=== PATIENT | female | born 1975 | race Caucasian/White ===

== ENCOUNTER 2017-03-01 11:36 | Emergency (ER) | payer OTHER ==
[~2017-03-01] VITALS: Ht 160 cm; Wt 95.5 kg
[~2017-03-01 11:36] MED LIST: PREN1TAB49
[2017-03-01 11:41] VITALS: Ht 160 cm; Wt 95.5 kg
--- NOTE | 2017-03-01 12:20 | ERD ---
ER Documentation Chief Complaint Date/Time DATE: 03/01/17 TIME: 12:19 Chief Complaint VAG BLEEDING SINCE YESTERDAY, LMP 12/30/16 HPI This a 5-year-old female presents to the emergency department today complaining of vaginal spotting that started yesterday. States that she had some crampy pain at the time. States she has not taken any medication for the pain. States she is approximately 9 weeks and her last ultrasound was on the that she was "not told anything". States that she usually goes all of you. Denies any fevers or chills or dysuria. ROS All systems reviewed and are negative except as per history of present illness. Medications Home Meds Active Scripts Acetaminophen* (Tylophen*) 500 Mg Capsule, 1 CAP PO Q6H Y for PAIN AND OR ELEVATED TEMP, #30 CAP Prov:HAMILTON VYAS PA-C 03/01/17 Reported Medications Vits W-Ca,Fe,Fa(<1MG) () 1 Tab Tablet 05/23/10 Allergies Allergies: Coded Allergies: No Known Drug Allergy (Verified Allergy, Unknown, 05/04/09) PMhx/Soc History of Surgery: Yes (APPENDIX C-SECTIONX 2) Anesthesia Reaction: No Hx Neurological Disorder: No Hx Respiratory Disorders: No Hx Cardiac Disorders: No Hx Psychiatric Problems: No Hx Miscellaneous Medical Probl: No Hx Alcohol Use: No Hx Substance Use: No Hx Tobacco Use: No Physical Exam Vitals Vital Signs Date Time Temp Pulse Resp B/P Pulse Ox O2 Delivery O2 Flow Rate FiO2 03/01/17 11:41 99.0 103 22 136/79 98 Physical Exam Const: Obese, no acute distress Head: Atraumatic Eyes: Normal Conjunctiva ENT: Normal External Ears, Nose and Mouth. Neck: Full range of motion..~ No meningismus. Resp: Clear to auscultation bilaterally Cardio: Regular rate and rhythm, no murmurs Abd: Soft, non tender, non distended. Normal bowel sounds Skin: No petechiae or rashes Back: No midline or flank tenderness Ext: No cyanosis, or edema Neur: Awake and alert Psych: Normal Mood and Affect Result Diagram: 03/01/17 1221 Results 24 hrs Laboratory Tests Test 03/01/17 12:20 03/01/17 12:21 03/01/17 12:26 Beta HCG, Quantitative 4712.0mIU/ml White Blood Count 7.510^3/ul Red Blood Count 4.9210^6/ul Hemoglobin 14.3g/dl Hematocrit 42.3% Mean Corpuscular Volume 86.0fl Mean Corpuscular Hemoglobin 29.1pg Mean Corpuscular Hemoglobin Concent 33.8g/dl Red Cell Distribution Width 12.4% Platelet Count 61077^3/UL Mean Platelet Volume 11.4fl Neutrophils % 63.6% Lymphocytes % 28.6% Monocytes % 6.2% Eosinophils % 0.9% Basophils % 0.3% Nucleated Red Blood Cells % 0.0/100WBC Neutrophils # 4.810^3/ul Lymphocytes # 2.110^3/ul Monocytes # 0.510^3/ul Eosinophils # 0.110^3/ul Basophils # 0.010^3/ul Nucleated Red Blood Cells # 0.010^3/ul Urine Color COLORLESS Urine Clarity CLEAR Urine pH 7.0 Urine Specific [place] 1.001 Urine Ketones NEGATIVEmg/dL Urine Nitrite NEGATIVEmg/dL Urine Bilirubin NEGATIVEmg/dL Urine Urobilinogen NEGATIVEmg/dL Urine Leukocyte Esterase TRACELeu/ul Urine Microscopic RBC 0/HPF Urine Microscopic WBC 1/HPF Urine Hemoglobin 1+mg/dL Urine Glucose NEGATIVEmg/dL Urine Total Protein NEGATIVEmg/dl DIAGNOSTIC IMAGING REPORT Patient: JIMENEZ FELTON : 1975 Age: 41 Sex: F MR #: [id number] DOS: 03/01/17 1216 Ordering MD: HAMILTON VYAS PA-C Location: [facility] Room/Bed: PROCEDURE: OB Ultrasound. CLINICAL INDICATION: Positive test. Vaginal bleeding. TECHNIQUE: Ultrasound of the pelvis was performed with transabdominal and transvaginal sonography in the axial and sagittal planes. COMPARISON: No prior study is available for comparison. FINDINGS: There is a possible irregular small intrauterine gestational sac. pole and yolk sac are not visualized. Mean sac diameter is approximately 0.6 cm. There is a possible subchorionic hemorrhage. Menstrual age by ultrasound dates is less than 6 weeks. There is an anterior fundal fibroid in the uterus measuring 4.5 x 3.6 x 3.1 cm. There is no other uterine mass. The right ovary measures 2.6 x 1.9 x 2.7 cm. There is a right ovarian cystic structure with internal echoes measuring approximately 1.0 x 1.3 cm. The left ovary is not visualized. Color Doppler and pulsed Doppler sonography demonstrate normal flow to the right ovary. There is no other pelvic mass or free fluid. IMPRESSION: 1. Possible small intrauterine gestational sac with pole and yolk sac not visualized. Follow-up ultrasound in 10 days is advised. 2. Alternatively, the patient may have an ectopic gestation. Correlation with clinical findings and HCG is advised. 3. Anterior fundal fibroid in the uterus measuring 4.5 cm in maximal dimension. 4. Right ovarian cystic structure with internal echoes measuring 1.0 x 1.3 cm. This may be due to ectopic gestation. 5. Left ovary not visualized. RPTAT: QQ .Curt Bravo MD, Date Time Electronically viewed and signed by .Curt Bravo MD, on 03/01/2017 13:38 .R/ CC: HAMILTON VYAS PA-C Procedures/[facility] This is a A2 41-year-old female who presents to the emergency department today complaining of vaginal bleeding. Patient states she is approximately 9 weeks . Given this I did obtain a complete OB workup. Laboratory work shows no elevated white blood cell count. She is not anemic. Platelets are within normal limits. UA shows trace leukocyte esterase negative nitrites and no microscopic white blood cell Beta quant hCG 4712.0 Rh status B+ Ultrasound shows a possible small intrauterine gestational sac with pole and yolk sac not visualized. Follow-up ultrasound in 10 days is advised. Patient may have an ectopic gestation. There is an anterior fundal fibroid in the uterus measuring 4.5 cm in maximal dimension. There is a right ovarian cystic structure with internal echoes measuring 1.0 x 1.3. This may be due to ectopic gestation. There is no other pelvic mass or free fluid. Left ovary is not visualized. There is normal Doppler flow in the right ovary. There is a possible subchorionic hemorrhage. Given patient's ultrasound and beta quant findings I did place a call to the Laborist concrete form setter, Dr. Buckner, who does not feel that there is anything to do at this time. He has recommended close follow-up and repeat beta quant and ultrasound in 48 hours. Patient symptoms at this time is consistent with vaginal bleeding in early . Other differentials to consider early normal versus early failed versus subchorionic hemorrhage. Patient is afebrile and otherwise well-appearing. I have low suspicion for ectopic , tubo ovarian abscess, ovarian torsion as patient has no pain at this time however I cannot entirely rule out ectopic . I explained this to the patient. I have explained to her that she may continue to have vaginal bleeding. I have explained the results to the patient. I have explained to the patient that they need to follow-up in 48 hours for a repeat beta quant and ultrasound. At this time the patient is stable for discharge and outpatient management. Patient should follow up with their PCP in the next 1-2 days. They may return to the emergency department sooner for any persistent or worsening of symptoms. Patient understood and agreed with the plan. Departure Diagnosis: Primary Impression: Vaginal bleeding in patient at less than 20 weeks gestation Condition: HAMILTON Jaeger PA-C Mar 01, 2017 12:20
[2017-03-01 12:41] LABS: BASOPHILS % 0.3 % (0.0-2.0); EOSINOPHILS # 0.1 10^3/ul (0.0-0.5); EOSINOPHILS % 0.9 % (0.0-7.0); HEMATOCRIT 42.3 % (37.0-47.0); HEMOGLOBIN 14.3 g/dl (12.0-16.0); LYMPHOCYTES # 2.1 10^3/ul (0.8-2.9); LYMPHOCYTES % 28.6 % (15.0-51.0); MEAN CORPUSCULAR HEMOGLOBIN 29.1 pg (29.0-33.0); MEAN CORPUSCULAR HGB CONC 33.8 g/dl (32.0-37.0); MEAN PLATELET VOLUME 11.4 fl (7.4-10.4); MONOCYTE # 0.5 10^3/ul (0.3-0.9); MONOCYTES % 6.2 % (0.0-11.0); NEUTROPHIL # 4.8 10^3/ul (1.6-7.5); NEUTROPHILS % 63.6 % (39.0-77.0); PLATELET COUNT 168 10^3/UL (140-415); RED BLOOD COUNT 4.92 10^6/ul (4.20-5.40); RED CELL DISTRIBUTION WIDTH 12.4 % (11.5-14.5); WHITE BLOOD COUNT 7.5 10^3/ul (4.8-10.8)
[2017-03-01 12:50] LABS: ADD UMIC YES; UR ASCORBIC ACID NEGATIVE (NEGATIVE); UR BILIRUBIN (Dip) NEGATIVE (NEGATIVE); UR BLOOD (Dip) 1+ mg/dL (NEGATIVE); UR CLARITY CLEAR (CLEAR); UR COLOR COLORLESS (YELLOW); UR GLUCOSE (Dip) NEGATIVE (NEGATIVE); UR KETONES (Dip) NEGATIVE (NEGATIVE); UR LEUKOCYTE ESTERASE (Dip) TRACE Leu/ul (NEGATIVE); UR NITRITE (Dip) NEGATIVE (NEGATIVE); UR RBC 0 /HPF (0-5); UR SPECIFIC GRAVITY (Dip) 1.001 (1.003-1.030); UR TOTAL PROTEIN (Dip) NEGATIVE (NEGATIVE); UR UROBILINOGEN (Dip) NEGATIVE (NEGATIVE)
--- NOTE | 2017-03-01 13:38 | RADRPT ---
PROCEDURE: OB Ultrasound. CLINICAL INDICATION: Positive test. Vaginal bleeding. TECHNIQUE: Ultrasound of the pelvis was performed with transabdominal and transvaginal sonography in the axial and sagittal planes. COMPARISON: No prior study is available for comparison. FINDINGS: There is a possible irregular small intrauterine gestational sac. pole and yolk sac are not v isualized. Mean sac diameter is approximately 0.6 cm. There is a possible subchorionic hemorrhage. Menstrual age by ultrasound dates is less than 6 weeks. There is an anterior fundal fibroid in the uterus measuring 4.5 x 3.6 x 3.1 cm. There is no other ut erine mass. The right ovary measures 2.6 x 1.9 x 2.7 cm. There is a right ovarian cystic structure with interna l echoes measuring approximately 1.0 x 1.3 cm. The left ovary is not visualized. Color Doppler and pulsed Doppler sonography demonstrate normal flow to the right ovary. There is no other pelvic mass or free fluid. IMPRESSION: 1. Possible small intrauterine gestational sac with pole and yolk sac not visualized. Follow -up ultrasound in 10 days is advised. 2. Alternatively, the patient may have an ectopic gestation. Correlation with clinical findings an d HCG is advised. 3. Anterior fundal fibroid in the uterus measuring 4.5 cm in maximal dimension. 4. Right ovarian cystic structure with internal echoes measuring 1.0 x 1.3 cm. This may be due to ectopic gestation. 5. Left ovary not visualized. RPTAT: QQ .Curt Bravo MD, Date Time Electronically viewed and signed by .Curt Bravo MD, MD on 03/01/2017 13:38 .R/
[2017-03-01] MEDS ORDERED: ACET500C5 PO (14:32)
== END 2017-03-01 14:38 | disposition home or self-care (01) ==
LOC: FTE 11:36
DX: O20.9 Hemorrhage in early pregnancy, unspecified (principal); Z3A.09 9 weeks gestation of pregnancy
CPT/HCPCS: 36415; 76801; 76817; 81001; 84702; 85025; 86900; 86901; Z7502